=== PATIENT | female | born 2000 | race Caucasian/White ===

== ENCOUNTER 2021-06-20 20:36 | Emergency (ER) | payer BC ==
[~2021-06-20] VITALS: Ht 162.6 cm; Wt 49.9 kg
[2021-06-20 20:40] VITALS: BP_SYST 108
--- NOTE | 2021-06-20 20:40 | NUR ---
PT TO [facility] FOR EVALUATION.
--- NOTE | 2021-06-20 20:45 | NUR ---
DR. HOOKS AT BEDSIDE TO ASSESS.
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
[2021-06-20] MEDS ORDERED: DIPH-TET-PERTUS Vaccine 0.5 ML VIAL (ADACEL) I.M. ONE (21:00)
[2021-06-20] MEDS ORDERED: cefTRIAXone 1 GM VIAL IM ONE (21:00)
--- NOTE | 2021-06-20 21:30 | NUR ---
Site to left pinky finger and abrasions to knees cleansed with bedadine and NS. Site measures approximately small puncture wound to pinky. Dry dressing and bacitracin applied. Tetanus vaccination made current.
[2021-06-20] MEDS ORDERED: BACITRACIN 1 GM OINT TP ONE ×2 (21:38→21:45)
[2021-06-20] MEDS ORDERED: KETOROLAC TROMETHAMINE 60 MG/2 ML VIAL IM ONE ×2 (21:38→21:45)
[2021-06-20] MEDS ORDERED: AMOX-426 PO (21:39)
[2021-06-20] MEDS ORDERED: NAPR-690 PO (21:39)
[2021-06-20 21:55] VITALS: BP_SYST 108
--- NOTE | 2021-06-20 21:55 | NUR ---
Patient given written and verbal discharge instructions and verbalizes understanding. DR. JESSEE TUCKER MD discussed with patient the results and treatment provided. Patient in stable condition. ID arm band removed. Rx PER MD. Patient educated on pain management and to follow up with PMD. Pain Scale 0/10. Opportunity for questions provided and answered. Medication side effect fact sheet provided.
== END 2021-06-20 21:55 | disposition home or self-care (01) ==
LOC: SED 20:36
DX: S61.257A Open bite of left little finger without damage to nail, initial encounter (principal); W55.51XA Bitten by raccoon, initial encounter; Y93.89 Activity, other specified; Y92.89 Other specified places as the place of occurrence of the external cause; Y99.8 Other external cause status
CPT/HCPCS: 90471; 90715; 96372; 99284; J0696; J1885